=== PATIENT | male | born 1995 | race Caucasian/White ===

== ENCOUNTER 2021-01-20 22:07 | Emergency (ER) | payer SELFPAY ==
[~2021-01-20] VITALS: Ht 182.9 cm; Wt 73.4 kg
--- NOTE | 2021-01-20 22:36 | PHYS DOC ---
Past History Past Medical History: No Pertinent History Additional Past Surgical Histo: Right hand Smoking: Cigarettes Alcohol Use: None Drug Use: None General Adult EDM: Chief Complaint: HAND PROBLEM HPI: HPI: 25-year-old male presents with report of mechanical trip and fall today at approximately 1800 striking the back of his left hand. Patient reports continued pain to his left fifth metacarpal region of his hand with dorsal swell ing. Patient reports concern he might have dislocated his pinky but was able to relocate it. Patient reports has been taking ibuprofen with some improvement of symptoms. Denies numbness or tingling. Patient also concern for possible fracture. Denies other injury. Denies head trauma or neck pain. Review of Systems: Review of Systems: Constitutional: Denies fever or chills Eyes: Denies redness or eye pain HENT: Denies nasal congestion or epistaxis Musculoskeletal: Reports pain and swelling to left hand Integument: Denies rash; reports ecchymosis and swelling to left hand Neurologic: Denies headache, focal weakness or sensory changes Complete systems were reviewed and found to be within normal limits, except as documented in this note. Allergies: Allergies: Allergies Coded Allergies Type Severity Reaction Last Updated Verified No Known Drug Allergies 01/20/21 No Physical Exam: PE: Constitutional: Well developed, well nourished, no acute distress, non-toxic appearance HENT: Normocephalic, atraumatic Eyes: Conjunctiva normal, no discharge Neck: Normal range of motion, supple Lungs & Thorax: No respiratory distress, equal chest rise and fall Skin: Warm, dry, ecchymosis and mild swelling to dorsal aspect of left fifth metacarpal Extremities: Left pinky with full range of motion, no deformity, swelling and tenderness to mid fifth metacarpal of left hand, tendon function appears intact, left radial pulse +2, cap refill of fingers less than 2 seconds Neurologic: Alert and oriented X 3, normal motor function, normal sensory function, no focal deficits noted Psychologic: Affect normal, judgment normal EKG: EKG: [] Radiology/Procedures: Radiology/Procedures: PROCEDURE: HAND LEFT 3V XR HAND_LEFT 3 VIEWS History: Reason: left 5th metacarpal pain/swelling s/p blunt trauma / Spl. Instructions: / History: Technique: 3 views left hand Comparison: None. Findings: Acute transverse left fifth metacarpal fracture with anterior angulation. No dislocation. No additional fracture. There is adjacent soft tissue swelling. Impression: 1. Acute left fifth metacarpal fracture with angulation. Electronically signed by: Toan Maxwell DO (01/20/2021 10:37 PM) [facility] Heart Score: C/O Chest Pain: N/A Course & Med Decision Making: Course & Med Decision Making Pertinent Imaging studies reviewed. (See chart for details) Patient presents with left hand swelling and tenderness to fifth metacarpal. Limb neurovascularly intact. Ice applied. Patient reports taking pain medication prior to arrival with [id number] ibuprofen. X-ray obtained with mildly displaced fifth metacarpal shaft fracture. Splint applied. Patient stable for discharge with outpatient follow-up with PCP/orthopedics. Orthopedic referral provided. Discussed findings and plan with patient and family, who acknowledge understanding and agreement. Klarissa Disclaimer: Klarissa Disclaimer: This electronic medical record was generated, in whole or in part, using a voice recognition dictation system. Splinting Splinting : Location: Left hand Hand-Made Type: orthoglass Pre-Proc Neuro Vasc Exam: normal Post-Proc Neuro Vasc Exam: normal, unchanged from pre-exam Departure Departure: Impression: Primary Impression: Metacarpal bone fracture Qualified Codes: S62.357A - Nondisplaced fracture of shaft of fifth metacarpal bone, left hand, initial encounter for closed fracture Disposition: 01 HOME / SELF CARE / HOMELESS Condition: STABLE Referrals: PCP,KYLE (PCP) ISRAEL FERNANDEZ MD Patient Instructions: Hand Fracture, Metacarpals, [id number], Splint Care, [id number] Additional Instructions: ICE area of discomfort 20 min on then leave off next 20 mins. Repeat several times daily for next few days. May also use over the counter Tylenol and/or Ibuprofen for pain or discomfort. KELVIN ESPINOZA DO Jan 20, 2021 22:36
--- NOTE | 2021-01-20 22:40 | RAD ---
XR HAND_LEFT 3 VIEWS History: Reason: left 5th metacarpal pain/swelling s/p blunt trauma / Spl. Instructions: / History: Technique: 3 views left hand Comparison: None. Findings: Acute transverse left fifth metacarpal fracture with anterior angulation. No dislocation. No addition al fracture. There is adjacent soft tissue swelling. Impression: 1. Acute left fifth metacarpal fracture with angulation. Electronically signed by: Toan Maxwell DO (01/20/2021 10:37 PM) [facility]
[2021-01-20 23:38] VITALS: BP 120/74
== END 2021-01-20 23:41 | disposition home or self-care (01) ==
LOC: ER 22:07
DX: S62.357A Nondisplaced fracture of shaft of fifth metacarpal bone, left hand, initial encounter for closed fracture (principal); F17.210 Nicotine dependence, cigarettes, uncomplicated; W01.0XXA Fall on same level from slipping, tripping and stumbling without subsequent striking against object, initial encounter; Y93.89 Activity, other specified; Y92.89 Other specified places as the place of occurrence of the external cause; Y99.8 Other external cause status
CPT/HCPCS: 29125; 73130; 99283